=== PATIENT | male | born 1975 | race Caucasian/White ===

== ENCOUNTER 2019-10-11 06:00 | Emergency (ER) | payer MEDICAID ==
--- NOTE | 2019-10-11 06:13 | EDM.PDOC ---
ED HPI GENERAL MEDICAL PROBLEM - General Chief Complaint: General Stated Complaint: COUGH, BODY ACHES, FLU SYMPTOMS Time Seen by Provider: 10/11/19 06:08 Source of Information: Reports: Patient History Limitations: Reports: No Limitations - History of Present Illness INITIAL COMMENTS - FREE TEXT/NARRATIVE: Sick for 3 days coughing chest burning legs. Patient also has had a fever Onset: Today Duration: Day(s): (3), Getting Worse Location: Reports: Chest Quality: Reports: Ache Severity: Moderate Improves with: Reports: None Worsens with: Reports: Movement Associated Symptoms: Reports: No Other Symptoms chest Pain Score (Numeric/FACES): 4 - Related Data Allergies Allergy/AdvReac Type Severity Reaction Status Date / Time cephalexin [From Keflex] Allergy Vomiting Verified 10/11/19 06:18 erythromycin base Allergy Vomiting Verified 10/11/19 06:18 Penicillins Allergy Airway Verified 10/11/19 06:18 Tightness Home Meds: Home Meds Azithromycin 250 mg PO 5XDAY #7 tablet 10/11/19 [Rx] Omeprazole 20 mg PO DAILY 10/11/19 [History] ED ROS GENERAL - Review of Systems Review Of Systems: Comprehensive ROS is negative, except as noted in HPI. Constitutional: Reports: Fever, Chills, Malaise, Diaphoresis HEENT: Reports: No Symptoms Respiratory: Reports: Shortness of Breath, Pleuritic Chest Pain, Cough Cardiovascular: Reports: No Symptoms Endocrine: Reports: No Symptoms GI/Abdominal: Reports: No Symptoms : Reports: No Symptoms Musculoskeletal: Reports: No Symptoms Skin: Reports: No Symptoms Neurological: Reports: No Symptoms Psychiatric: Reports: No Symptoms Hematologic/Lymphatic: Reports: No Symptoms Immunologic: Reports: No Symptoms ED EXAM, GENERAL - Physical Exam Exam: See Below Free Text/Narrative:: Exam: HEENT patient appears in mild distress TMs are normal, ears are nor mal : Chest: Normal S1 normal S2 no murmurs Lungs: Clear to auscultation no rales no wheezing Exam Limited By: No Limitations General Appearance: Alert, Mild Distress Ears: Normal External Exam, Normal Canal, Hearing Grossly Normal, Normal TMs Throat/Mouth: Normal Inspection Head: Atraumatic Neck: Normal Inspection Respiratory/Chest: Lungs Clear, Normal Breath Sounds, Chest Non-Tender Cardiovascular: Normal Peripheral Pulses GI/Abdominal: No Distention (Male) Exam: Deferred Rectal (Males) Exam: Deferred Back Exam: Normal Inspection, Full Range of Motion Psychiatric: Normal Affect Skin Exam: Warm Course - Vital Signs Last Recorded V/S: Last Vital Signs Temp 99.8 F 10/11/19 06:10 Pulse 84 10/11/19 07:57 Resp 18 10/11/19 07:57 BP 144/65 H 10/11/19 07:57 Pulse Ox 93 L 10/11/19 07:57 - Orders/Labs/Meds Orders: Active Orders 24 hr Category Date Time Status EKG 12 Lead [EKG Documentation Completion] [RC] STAT Care 10/11/19 06:24 Active CULTURE STREP A CONFIRMATION [] Stat Lab 10/11/19 06:40 Results STREP SCRN A RAPID W CULT CONF [] Stat Lab 10/11/19 06:40 Results Labs: Laboratory Tests 10/11/19 10/11/19 Range/Units 06:40 06:40 WBC 12.54 H (4.0-11.0) K/uL RBC 5.90 (4.50-5.90) M/uL Hgb 17.7 H (13.0-17.0) g/dL Hct 51.6 H (38.0-50.0) % MCV 87.5 (80.0-98.0) fL MCH 30.0 (27.0-32.0) pg MCHC 34.3 (31.0-37.0) g/dL RDW Std Deviation 47.5 (28.0-62.0) fl RDW Coeff of Yarelis 15 (11.0-15.0) % Plt Count 293 (150-400) K/uL MPV 10.00 (7.40-12.00) fL Neut % (Auto) 79.4 (48.0-80.0) % Lymph % (Auto) 7.3 L (16.0-40.0) % Mclennan % (Auto) 12.5 (0.0-15.0) % Eos % (Auto) 0.6 (0.0-7.0) % Baso % (Auto) 0.2 (0.0-1.5) % Neut # (Auto) 10.0 H (1.4-5.7) K/uL Lymph # (Auto) 0.9 (0.6-2.4) K/uL Mclennan # (Auto) 1.6 H (0.0-0.8) K/uL Eos # (Auto) 0.1 (0.0-0.7) K/uL Baso # (Auto) 0.0 (0.0-0.1) K/uL Nucleated RBC % 0.0 /100WBC Nucleated RBCs # 0 K/uL Sodium 138 (136-148) mmol/L Potassium 4.6 (3.5-5.1) mmol/L Chloride 104 (98-107) mmol/L Carbon Dioxide 26.1 (21.0-32.0) mmol/L BUN 8 (7.0-18.0) mg/dL Creatinine 1.5 H (0.8-1.3) mg/dL Est Cr Clr Drug Dosing 62.84 mL/min Estimated GFR (MDRD) 50.8 ml/min Glucose 83 (74-106) mg/dL Calcium 8.3 L (8.5-10.1) mg/dL Total Bilirubin 0.2 (0.2-1.0) mg/dL AST 24 (15-37) IU/L ALT 42 (14-63) IU/L Alkaline Phosphatase 72 (46-116) U/L Troponin I < 0.050 (0.000-0.056) ng/mL Total Protein 7.0 (6.4-8.2) g/dL Albumin 3.5 (3.4-5.0) g/dL Globulin 3.5 (2.6-4.0) g/dL Albumin/Globulin Ratio 1.0 (0.9-1.6) Meds: Medications Discontinued Medications Generic Name Dose Route Start Last Admin Trade Name Freq PRN Reason Stop Dose Admin Azithromycin 500 mg 10/11/19 07:30 10/11/19 07:44 Zithromax PO 500 mg Q24H REKHA Administration Sodium Chloride 1,000 mls @ 1,000 mls/hr 10/11/19 06:20 10/11/19 06:48 Normal Saline IV 10/11/19 07:19 1,000 mls/hr .Bolus ONE Administration Ketorolac Tromethamine 30 mg 10/11/19 06:23 10/11/19 06:48 Toradol IVPUSH 10/11/19 06:24 30 mg ONETIME ONE Administration Departure - Departure Time of Disposition: 04:10 Disposition: Home, Self-Care 01 Clinical Impression: Pneumonia - Discharge Information Prescriptions: Azithromycin 250 mg PO 5XDAY #7 tablet Instructions: Community-Acquired Pneumonia, Adult, [id number]-Br[facility] Referrals: PCP,Not In Area [Primary Care Provider] - Forms: ED Department Discharge Additional Instructions: The following information is given to patients seen in the emergency department who are being discharged to home. This information is to outline your options for follow-up care. We provide all patients seen in our emergency department with a follow-up referral. The need for follow-up, as well as the timing and circumstances, are variable depending upon the specifics of your emergency department visit. If you don't have a primary care physician on staff, we will provide you with a referral. We always advise you to contact your personal physician following an emergency department visit to inform them of the circumstance of the visit and for follow-up with them and/or the need for any referrals to a consulting specialist. The emergency department will also refer you to a specialist when appropriate. This referral assures that you have the opportunity for followup care with a specialist. All of these measure are taken in an effort to provide you with optimal care, which includes your followup. Under all circumstances we always encourage you to contact your private physician who remains a resource for coordinating your care. When calling for followup care, please make the office aware that this follow-up is from your recent emergency room visit. If for any reason you are refused follow-up, please contact the [facility] emergency department at and ask to speak to the emergency department charge nurse. [facility]- Internal Medicine and Family [address] [address] Sepsis Event Note - Focused Exam Date Exam was Performed: 10/12/19 Time Exam was Performed: 04:11 - My Orders Last 24 Hours: My Active Orders 10/11/19 06:24 EKG 12 Lead [EKG Documentation Completion] [RC] STAT 10/11/19 06:40 CULTURE STREP A CONFIRMATION [RM] Stat STREP SCRN A RAPID W CULT CONF [RM] Stat - Assessment/Plan Last 24 Hours: My Active Orders 10/11/19 06:24 EKG 12 Lead [EKG Documentation Completion] [RC] STAT 10/11/19 06:40 CULTURE STREP A CONFIRMATION [RM] Stat STREP SCRN A RAPID W CULT CONF [RM] Stat
[2019-10-11] MEDS ORDERED: Sodium Chloride 0.9% 1,000 ML IV ONE (06:20)
[2019-10-11] MEDS ORDERED: Ketorolac 30 MG/ML SDV IVPUSH ONE (06:23)
--- NOTE | 2019-10-11 07:10 | CR ---
Indication: Cough and chest pain Technique: Chest 2 views Comparison: None Findings: Cardiovascular and mediastinum: Heart size and vasculature are normal in caliber and appearance. Lungs and pleural spaces: Ill-defined infiltrate suspected in the infrahilar region of the right lower lobe. Remainder of the lungs and pleural spaces are clear. Bones and soft tissues: No significant findings. Impression: Possible pneumonia in the right lower lobe. Dictated by Pollo Vides MD @ Oct 11 2019 7:06AM Signed by Dr. Pollo Vides @ Oct 11 2019 7:08AM
[2019-10-11 07:12] LABS: BLOOD UREA NITROGEN,BUN 8 mg/dL (7.0-18.0); CARBON DIOXIDE,CO2 26.1 mmol/L (21.0-32.0); CHLORIDE,CL 104 mmol/L (98-107); GLUCOSE RANDOM 83 mg/dL (74-106); POTASSIUM,K 4.6 mmol/L (3.5-5.1); SODIUM,NA 138 mmol/L (136-148)
[2019-10-11] MEDS ORDERED: Azithromycin 250 MG Tab PO SCH (07:30)
== END 2019-10-11 08:00 | disposition home or self-care (01) ==
LOC: MW.ED 06:00
DX: J18.9 Pneumonia, unspecified organism (principal); Z88.1 Allergy status to other antibiotic agents; Z88.0 Allergy status to penicillin; Z79.899 Other long term (current) drug therapy
CPT/HCPCS: 36415; 71045; 80053; 84484; 85025; 87081; 87804; 87880; 93005; 96361; 96374; 99285; A9270; J1885; J7030; 99283